=== PATIENT | female | born 1985 | race Caucasian/White ===

== ENCOUNTER 2017-03-18 19:47 | Emergency (ER) | payer OTHER ==
[2017-03-18] MEDS ORDERED: DOXYcycline CAP(*) 100 MG PO ONE (20:28)
[2017-03-18 20:45] VITALS: BP 130/89
--- NOTE | 2017-03-18 20:47 | RAD ---
INDICATION: Dog bite to left fourth metacarpal and second digit COMPARISON: None. TECHNIQUE: 4 views of the left hand were obtained. FINDINGS: The adequately corticated bones are in normal alignment. No significant focal osseous abnormality or fracture is seen. Joint spaces appear maintained. IMPRESSION: Normal left hand radiograph. If the patient's symptoms persist, follow-up imaging is recommended.
--- NOTE | 2017-03-18 20:59 | UC ---
Bite Injury/Animal HPI - HPI Summary HPI Summary: Dog bite left hand 2 laceration on dorsal surface one on first area - History of Current Complaint Chief Complaint: UCLaceration Stated Complaint: DOG BITE - LEFT HAND Time Seen by Provider: 03/18/17 20:22 Hx Obtained From: Patient Hx Last Menstrual Period: november 2015 ?: No - Severity Currently: Mild Severity Initially: Mild Pain Intensity: 3 Pain Scale Used: 0-10 Numeric Onset/Duration: Sudden Onset Type of Bite: Pet Has Animal Been Immunized?: Yes Character: Puncture Aggravating Factor(s): Other Alleviating Factor(s): Other Associated Signs And Symptoms: Positive: Negative Hx of Bite: Provoked by: - dog fight Animal Available for Observation: Yes Animal Control Notified: Yes - Allergies/Home Medications Allergies/Adverse Reactions: Allergies Allergy/AdvReac Type Severity Reaction Status Date / Time Penicillins Allergy Intermediate Hives Verified 03/18/17 20:45 eggs Allergy Rash Uncoded 03/18/17 20:45 PMH/Surg Hx/FS Hx/Imm Hx Previously Healthy: Yes - Surgical History Surgical History: Yes Surgery Procedure, Year, and Place: nasal surgery, tonsilectomy - Family History Known Family History: Positive: None - Social History Occupation: Employed Full-time Lives: With Family Alcohol Use: Occasionally Substance Use Type: None Smoking Status (MU): Never Smoked Tobacco - Immunization History Most Recent Influenza Vaccination: allergic Most Recent Tetanus Shot: 2014 Review of Systems Constitutional: Negative Skin: Negative Eyes: Negative ENT: Negative Respiratory: Negative Cardiovascular: Negative Gastrointestinal: Negative Genitourinary: Negative Motor: Negative Neurovascular: Negative Musculoskeletal: Negative Neurological: Negative Psychological: Negative Is Patient Immunocompromised?: No All Other Systems Reviewed And Are Negative: Yes Physical Exam Triage Information Reviewed: Yes Appearance: Well-Appearing, No Pain Distress, Well-Nourished Vital Signs: Initial Vital Signs Temp 99 F 03/18/17 20:37 Pulse 83 03/18/17 20:37 Resp 18 03/18/17 20:37 BP 130/89 03/18/17 20:37 Vital Signs Reviewed: Yes Eye Exam: Normal Eyes: Positive: Conjunctiva Clear ENT Exam: Normal ENT: Positive: Normal ENT inspection, Hearing grossly normal, TMs normal. Negative: Nasal congestion, Trismus, Muffled voice, Hoarse voice, Dental tenderness Dental Exam: Normal Neck exam: Normal Neck: Positive: Supple, Nontender Respiratory Exam: Normal Respiratory: Positive: Chest non-tender, Lungs clear, Normal breath sounds, No respiratory distress, No accessory muscle use Cardiovascular Exam: Normal Cardiovascular: Positive: RRR, No Murmur, Pulses Normal, Brisk Capillary Refill Bowel Sounds: Positive: Present Musculoskeletal Exam: Normal Musculoskeletal: Positive: Strength Intact, ROM Intact, No Edema Neurological Exam: Normal Neurological: Positive: Alert, Muscle Tone Normal Psychological Exam: Normal Psychological: Positive: Normal Response To Family Skin Exam: Other - 1. 1cm laceration 2. o.5 cm laceration Skin: Positive: Other Procedures - Laceration/Wound Repair 1 Location: upper extremity - left hand Description: Linear Length, Depth and Shape: linear 1 cm Betadine Prep?: No Irrigated w/ Saline (ccs): 250 Laceration/Wound Explored: clean Closure: SteriStrips Layer Closure?: No Sterile Dressing Applied?: Yes 2 Location: upper extremity - left hand near thumb Description: Linear Betadine Prep?: No Irrigated w/ Saline (ccs): 250 Laceration/Wound Explored: clean Closure: SteriStrips Layer Closure?: No Sterile Dressing Applied?: No Diagnostics - Radiology No standard instances Xray Interpretation: No Acute Changes Radiology Interpretation Completed By: Radiologist Re-Evaluation - Re-Evaluation First Eval Change: Improved - wounds approximate well with steri strips, patient refuses Antibiodic-encourage pat to take antibiodic she agree if begins to look infected she will take med and "pump and dump" breast milk, plan to follow with hand surgeon Bite Injury Course/Dx - Course Course Of Treatment: warm compress, wound care-pump and dump if she chooses to take antibbiodic follow with hand surgeon - Differential Dx/Diagnosis Provider Diagnoses: Dog bite to left hand Discharge - Discharge Plan Condition: Stable Disposition: HOME Prescriptions: DOXYcycline CAP(*) [DOXYcycline 100MG CAP(*)] 100 mg PO BID #13 cap Patient Education Materials: Animal Bite (ED), Warm Compress or Soak (ED) Referrals: Aldo Parks MD [Medical Doctor] - 3 Days Additional Instructions: Only use warm compress no soak keep hand dry May quickly gently and mildly wash in 2 days No breast feeding while taking the Doxycycline plus one day
== END 2017-03-18 21:50 | disposition home or self-care (01) ==
LOC: UCCORT 19:47
DX: S61.412A Laceration without foreign body of left hand, initial encounter (principal); W54.0XXA Bitten by dog, initial encounter; Y93.9 Activity, unspecified; Y92.9 Unspecified place or not applicable; Z88.0 Allergy status to penicillin
CPT/HCPCS: 99212; A9270-GY; G0463